=== PATIENT | male | born 1995 | race Caucasian/White ===

== ENCOUNTER 2017-10-01 14:16 | Emergency (ER) | payer OTHER ==
--- NOTE | 2017-10-01 15:05 | EDPHY ---
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 No numbness or tingling. Review of systems As per HPI General no fever no chills no weakness HEENT no eye pain no eye discharge. No eye redness, no sore throat Respiratory no cough, no shortness of breath Cardiac no chest pain, no peripheral edema GI no abdominal pain, no diarrhea, no constipation, no nausea, no vomiting no flank pain, no hematuria, no dysuria Musculoskeletal no myalgias, no joint pain Heme no easy bruising, no easy bleeding Endo no polyuria, no polydipsia Skin no rashes, no pruritus Neuro no syncope, no dizziness, no headaches Psych is no suicidal ideation, no homicidal ideation Past Medical/Surgical History: ADD Social History: Alcohol socially, denies tobacco or drug use Smoking Status: Smoker current status UNK Physical Exam: 21-year-old male alert and oriented no acute distress nontoxic appearance afebrile Alert and oriented in no acute distress nontoxic appearance, afebrile Atraumatic normocephalic Neck no JVD Lungs clear to auscultation, no respiratory distress Heart regular rate and rhythm Extremities no cyanosis clubbing edema Left little finger Part of nail at eponychium has extruded Lateral aspect of finger with small skin avulsion Full range of motion Good capillary refill Constitutional: Initial Vital Signs Temperature (C) 36.9 C 10/01/17 14:26 Heart Rate 59 L 10/01/17 14:26 Respiratory Rate 16 10/01/17 14:26 Blood Pressure 118/72 10/01/17 14:26 O2 Sat (%) 96 10/01/17 14:26 O2 Delivery Mode Room Air Allergies/Adverse Reactions: No Known Allergies Allergy (Unverified 10/01/17 14:26) Home Medications: Medication Instructions Recorded ADDERALL 15 MG TABLET 10/01/17 valACYclovir 10/01/17 Medical Decision Making - Diagnostics Imaging Results: Imaging Impressions Finger X-Ray 10/01/17 15:10 Impression: Negative radiographs of the left fifth finger. Procedures: Nail bed repair Digital block with 1% xylocaine and 0.25% bupivacaine both without epinephrine, 5 cc used for digital block of left little finger. Area scrubbed with Scott's baby shampoo and then irrigated with sterile saline. Using small sharp scissors I trimmed the edge of the extruded nail and replaced under the eponychium in sterile fashion Patient tolerated procedure well No complications Advised to keep clean and dry Bacitracin and tube gauze applied by high voltage electrician. ED Course/Re-evaluation: Patient here for evaluation of left little finger injury. Immunizations up-to-date X-ray Negative for fracture Impression Partial nail avulsion from the eponychium with associated superficial laceration on left little finger Plan Digital block and replace nail under eponychium Keep clean and dry Return for signs of infection Follow-up with workman's comp and/or primary care physician Departure - Departure Disposition: Home, Routine, Self-Care Clinical Impression: Nail avulsion, finger Condition: Good Instructions: Nail Avulsion (ED) Referrals: NONE *PRIMARY CARE P,. [Primary Care Provider] - As per Instructions
[2017-10-01 16:30] VITALS: BP 118/65
== END 2017-10-01 16:25 | disposition home or self-care (01) ==
LOC: CED 14:16
PROC: 0HBQXZZ Excision of Finger Nail, External Approach (ICD-10-PCS; principal; 2017-10-01)
DX: S61.307A Unspecified open wound of left little finger with damage to nail, initial encounter (principal); W23.1XXA Caught, crushed, jammed, or pinched between stationary objects, initial encounter; Y92.69 Other specified industrial and construction area as the place of occurrence of the external cause; Y99.0 Civilian activity done for income or pay; Y93.89 Activity, other specified
CPT/HCPCS: 73140-PO